=== PATIENT | female | born 1960 | race Caucasian/White ===

== ENCOUNTER → 2016-12-02 | Outpatient (CLI) | payer MEDICARE ==
[~2016-12-02] MED LIST: ANXIETY MEDICATION
--- NOTE | ~2016-12-02 | CT55 ---
[facility] A Service of [facility] & [facility] RADIOLOGY TEXT RESULTS PATIENT: DEEPA CARBALLO LOCATION: [facility] : 60 UNIT #: [id number] AGE: [address]: Jhon Angeles MD SEX: F ORDER DR: [id number] [address] [address] [id number] O MR#: [id number] Acc #: [id number] NAME: DEEPA CARBALLO : 1960 SEX: F STUDY DATE/TIME: 12/02/2016 13:14 UNIT: [facility] ROOM: STUDY DESCRIPTION: CT Chest W Con Attending Physician: Jhon Angeles M.D. Referring Physician: Jhon Angeles M.D. Ordering Physician: Jhon Angeles M.D. Primary Care Physician: Susanne Mullins A.P.R.N. MEDICAL IMAGING REPORT This report is preliminary unless electronic signature is present. EXAM CT of the chest with contrast. INDICATION Abnormal chest radiograph from November 17, 2016 which showed some interstitial opacities with a lower lobe predominance. This is a followup study. TECHNIQUE Axial CT images were obtained from the thoracic inlet through the dome of the diaphragm following the administration of intravenous contrast material. This CT exam was performed with one or more of the following radiation dose reduction techniques: automatic exposure control, adjustment of mA and/or kV according to patient size, and iterative reconstruction. FINDINGS No infiltrates are seen on today's examination. Patient does have a few scattered noncalcified pulmonary nodules ranging in size from 5-6 mm. The thyroid gland is mildly heterogeneous within the right lobe which may reflect some underlying nodules. Trachea and esophagus are within normal limits and there is no pleural or pericardial effusion. Mediastinal and hilar lymph nodes do not appear pathologically enlarged. Images through the upper abdomen demonstrate multiple low-attenuation lesions seen throughout the liver, favored to represent cysts. No aggressive osseous abnormalities are seen IMPRESSION 1. No infiltrates are seen on today's exam. 2. Patient has 2 noncalcified pulmonary nodules seen within the lungs. These range in size from 5-6 mm. I would suggest a followup CT in 12 months to document stability. [facility] A Service of [facility] RADIOLOGY TEXT RESULTS PATIENT: DEEPA CARBALLO LOCATION: [facility] : 60 UNIT #: [id number] AGE: [address]: Jhon Angeles MD SEX: F ORDER DR: 3. Suspected hepatic cysts. Please see the body of the report for any other additional incidental findings. Dictated by... Rosemary Talamantes M.D. THIS IS AN ELECTRONICALLY VERIFIED REPORT Rosemary Talamantes M.D. at 12/02/2016 5:28 PM AFF/cris TD: 12/02/2016 16:05 JOB #: [id number] MEDICAL IMAGING REPORT
[2016-12-02 13:00] LABS: POC - GFR >60.0 mL/min (>60)
== END | disposition home or self-care (01) ==
LOC: SCT 12:18
PROVIDERS: Internal Medicine
DX: J84.9 Interstitial pulmonary disease, unspecified (principal); R91.8 Other nonspecific abnormal finding of lung field
CPT/HCPCS: 71260; 82565; Q9967

== ENCOUNTER 2017-03-29 20:47 | Emergency (ER) | payer MEDICARE ==
[2017-03-29] MEDS ORDERED: ANXIETY MEDICATION (21:01)
== END 2017-03-29 21:22 | disposition home or self-care (01) ==
LOC: SED 20:47
DX: L02.414 Cutaneous abscess of left upper limb (principal); F41.9 Anxiety disorder, unspecified; F17.210 Nicotine dependence, cigarettes, uncomplicated
CPT/HCPCS: 99282

== ENCOUNTER → 2017-05-11 | Outpatient (CLI) | payer MEDICARE ==
--- NOTE | ~2017-05-11 | US134 ---
[facility] A Service [facility] RADIOLOGY TEXT RESULTS PATIENT: DEEPA CARBALLO LOCATION: [facility] : 60 UNIT #: [id number] AGE: [address]: Susanne Mullins [employer] SEX: F ORDER DR: [id number] [place] [id number] O MR#: [id number] Acc #: [id number] NAME: DEEPA CARBALLO : 1960 SEX: F STUDY DATE/TIME: 05/11/2017 10:11 UNIT: [facility] ROOM: STUDY DESCRIPTION: Transvaginal Attending Physician: Susanne Mullins A.P.R.N. Referring Physician: Susanne Mullins A.P.R.N. Ordering Physician: Susanne Mullins A.P.R.N. Primary Care Physician: Susanne Mullins A.P.R.N. MEDICAL IMAGING REPORT This report is preliminary unless electronic signature is present. EXAM Pelvic ultrasound, transvaginal, 05/11/2017. INDICATIONS Pelvic pain for the past several weeks. PROCEDURE Ledezma-scale and Doppler imaging of the pelvis via transvaginal approach. COMPARISON None FINDINGS Previous hysterectomy. Bowel loops extend into the pelvis. The ovaries are not clearly seen on the study. There is no appreciable pelvic mass or fluid. IMPRESSION 1. Previous hysterectomy. 2. No appreciable pelvic mass or fluid. 3. Ovaries are not clearly seen on the study. Dictated by... Alec Dykes M.D. THIS IS AN ELECTRONICALLY VERIFIED REPORT Alec Dykes M.D. at 05/17/2017 8:52 AM HERBER/garrison TD: 05/11/2017 17:47 JOB #: [id number] [facility] A Service [facility] RADIOLOGY TEXT RESULTS PATIENT: DEEPA CARBALLO LOCATION: [facility] : 60 UNIT #: [id number] AGE: [address]: Susanne Mullins SEX: F ORDER DR: MEDICAL IMAGING REPORT Page 1 of 1
== END | disposition home or self-care (01) ==
LOC: SGUS 10:10
DX: R10.2 Pelvic and perineal pain (principal); Z90.710 Acquired absence of both cervix and uterus
CPT/HCPCS: 76830